=== PATIENT | male | born 1975 | race African-American/Black ===

== ENCOUNTER 2017-10-06 09:34 | Emergency (ER) | payer OTHER ==
[~2017-10-06] VITALS: Ht 193 cm; Wt 113.4 kg
[~2017-10-06 09:34] MED LIST: CEPACOL SORE T1 EAC8 PO; CLEOCIN HCL150 MG PO
[2017-10-06 10:05] LABS: ABSOLUTE NEUTROPHILS 4.8 thou/uL (1.4-8.2); BASOPHILS 0.1 % (0.0-2.0); EOSINOPHILS 0.4 % (0.0-3.0); HEMOGLOBIN 16.4 gm/dL (14.0-18.0); LYMPHOCYTES 5.2 % (24.0-44.0); MCHC 34.1 g/dL (28.0-37.0); PLATELET COUNT 195 thou/uL (150-400); POLYS 89.3 % (36.0-66.0); RBC 5.28 mil/uL (4.50-6.00); RDW 13.6 % (10.5-14.5); WBC 5.4 thou/uL (4.0-11.0)
[2017-10-06 10:14] LABS: CALCIUM 9.5 mg/dL (8.5-10.1); CREATININE 1.1 mg/dL (0.7-1.3); POTASSIUM 4.5 mmol/L (3.5-5.1)
[2017-10-06] MEDS ORDERED: ZOFRAN ODT4 MG PO (10:17)
[2017-10-06 10:19] LABS: ALBUMIN 3.8 g/dL (3.4-5.0); DIRECT BILIRUBIN 0.2 mg/dL (<0.1-0.3); TOTAL BILIRUBIN 0.6 mg/dL (<0.1-1.0); TOTAL PROTEIN 7.8 g/dL (6.4-8.2)
[2017-10-06 10:54] LABS: URINE BILIRUBIN NEGATIVE (Negative); URINE BLOOD NEGATIVE (Negative); URINE CLARITY CLEAR; URINE COLOR YELLOW; URINE GLUCOSE-RANDOM* NEGATIVE (Negative); URINE KETONES NEGATIVE (Negative); URINE LEUKOCYTES NEGATIVE (Negative); URINE NITRITE NEGATIVE (Negative); URINE PROTEIN (DIPSTICK) NEGATIVE (Negative); URINE SPECIFIC GRAVITY 1.015 (1.005-1.035)
[2017-10-06 11:17] VITALS: BP 120/82
== END 2017-10-06 11:18 | disposition home or self-care (01) ==
LOC: ER 09:34
PROVIDERS: Emergency Medicine
DX: R11.2 Nausea with vomiting, unspecified (principal); R19.7 Diarrhea, unspecified; F17.210 Nicotine dependence, cigarettes, uncomplicated; Z88.0 Allergy status to penicillin; Z88.5 Allergy status to narcotic agent

== ENCOUNTER 2018-02-18 12:51 | Emergency (ER) | payer OTHER ==
[~2018-02-18] VITALS: Ht 195.6 cm; Wt 127.0 kg
[~2018-02-18 12:51] MED LIST changes: +ZOFRAN ODT4 MG PO
[2018-02-18 13:20] LABS: URINE BILIRUBIN NEGATIVE (Negative); URINE BLOOD NEGATIVE (Negative); URINE CLARITY CLEAR; URINE COLOR YELLOW; URINE GLUCOSE-RANDOM* NEGATIVE (Negative); URINE KETONES NEGATIVE (Negative); URINE LEUKOCYTES-REFLEX NEGATIVE (Negative); URINE NITRITE-REFLEX NEGATIVE (Negative); URINE PROTEIN (DIPSTICK) TRACE (Negative); URINE UROBILINOGEN 0.2 E.U./dl (0.2-1.0)
[2018-02-18 14:07] LABS: ABSOLUTE NEUTROPHILS 2.2 thou/uL (1.4-8.2); BASOPHILS 0.7 % (0.0-2.0); EOSINOPHILS 1.5 % (0.0-3.0); HEMATOCRIT 43.9 % (42.0-52.0); HEMOGLOBIN 14.9 gm/dL (14.0-18.0); MCH 30.9 pg (26.0-34.0); MONOCYTES 9.2 % (1.0-8.0); PLATELET COUNT 210 thou/uL (150-400); POLYS 55.6 % (36.0-66.0); RBC 4.83 mil/uL (4.50-6.00); RDW 13.6 % (10.5-14.5)
[2018-02-18 14:17] LABS: CALCIUM 9.3 mg/dL (8.5-10.1); CREATININE 1.1 mg/dL (0.7-1.3); POTASSIUM 4.2 mmol/L (3.5-5.1)
[2018-02-18 14:24] LABS: ALBUMIN 3.5 g/dL (3.4-5.0); TOTAL BILIRUBIN 0.3 mg/dL (<0.1-1.0); TOTAL PROTEIN 7.4 g/dL (6.4-8.2)
[2018-02-18] MEDS ORDERED: LEVAQUIN 500 M500 M2 PO (15:09)
[2018-02-18] MEDS ORDERED: DOXYCYCLINE 10100 MG PO (15:18)
[2018-02-18] MEDS ORDERED: TRAMADOL 50 MG50 MG PO (15:21)
[2018-02-18 15:42] VITALS: BP 121/74
== END 2018-02-18 15:44 | disposition home or self-care (01) ==
LOC: ER 12:51
PROVIDERS: Physician Assistant
DX: N45.1 Epididymitis (principal); F17.210 Nicotine dependence, cigarettes, uncomplicated; Z88.5 Allergy status to narcotic agent; Z88.0 Allergy status to penicillin

== ENCOUNTER 2018-03-22 07:59 | Emergency (ER) | payer OTHER ==
[~2018-03-22] VITALS: Ht 195.6 cm; Wt 127.0 kg
[~2018-03-22 07:59] MED LIST changes: +DOXYCYCLINE 10100 MG PO; +LEVAQUIN 500 M500 M2 PO; +TRAMADOL 50 MG50 MG PO
[2018-03-22 08:40] LABS: URINE BILIRUBIN NEGATIVE (Negative); URINE BLOOD NEGATIVE (Negative); URINE CLARITY CLEAR; URINE COLOR YELLOW; URINE GLUCOSE-RANDOM* NEGATIVE (Negative); URINE KETONES NEGATIVE (Negative); URINE LEUKOCYTES-REFLEX NEGATIVE (Negative); URINE NITRITE-REFLEX NEGATIVE (Negative); URINE PROTEIN (DIPSTICK) NEGATIVE (Negative); URINE SPECIFIC GRAVITY 1.025 (1.005-1.035); URINE UROBILINOGEN 0.2 E.U./dl (0.2-1.0)
[2018-03-22] MEDS ORDERED: CIPROFLOXACIN500 M1 PO (08:59)
== END 2018-03-22 09:21 | disposition home or self-care (01) ==
LOC: ER 07:59
PROVIDERS: Emergency Medicine
DX: N45.1 Epididymitis (principal); F17.210 Nicotine dependence, cigarettes, uncomplicated; Z88.5 Allergy status to narcotic agent; Z88.0 Allergy status to penicillin

== ENCOUNTER 2018-06-21 21:49 | Emergency (ER) | payer OTHER ==
[~2018-06-21] VITALS: Ht 195.6 cm; Wt 127.0 kg
[~2018-06-21 21:49] MED LIST changes: +CIPROFLOXACIN500 M1 PO
[2018-06-21 22:07] LABS: URINE BILIRUBIN NEGATIVE (Negative); URINE BLOOD NEGATIVE (Negative); URINE CLARITY CLEAR; URINE GLUCOSE-RANDOM* NEGATIVE (Negative); URINE KETONES NEGATIVE (Negative); URINE LEUKOCYTES-REFLEX NEGATIVE (Negative); URINE NITRITE-REFLEX NEGATIVE (Negative); URINE PROTEIN (DIPSTICK) NEGATIVE (Negative); URINE SPECIFIC GRAVITY 1.025 (1.005-1.035)
[2018-06-21 22:09] LABS: URINE COLOR YELLOW
[2018-06-21 22:12] LABS: ABSOLUTE NEUTROPHILS 1.8 thou/uL (1.4-8.2); BASOPHILS 0.6 % (0.0-2.0); EOSINOPHILS 1.7 % (0.0-3.0); HEMATOCRIT 45.6 % (42.0-52.0); LYMPHOCYTES 40.8 % (24.0-44.0); MCHC 32.9 g/dL (28.0-37.0); MCV 91.2 fL (80.0-100.0); MONOCYTES 10.1 % (1.0-8.0); PLATELET COUNT 216 thou/uL (150-400); POLYS 46.8 % (36.0-66.0); RDW 13.5 % (10.5-14.5); WBC 3.8 thou/uL (4.0-11.0)
[2018-06-21 22:19] LABS: CALCIUM 8.5 mg/dL (8.5-10.1); CREATININE 1.2 mg/dL (0.7-1.3); POTASSIUM 4.4 mmol/L (3.5-5.1)
[2018-06-21 22:25] LABS: ALBUMIN 3.4 g/dL (3.4-5.0); TOTAL BILIRUBIN 0.2 mg/dL (<0.1-1.0); TOTAL PROTEIN 7.2 g/dL (6.4-8.2)
[2018-06-21 22:58] VITALS: BP 125/69
== END 2018-06-21 22:59 | disposition home or self-care (01) ==
LOC: ER 21:49
PROVIDERS: Emergency Medicine
DX: R10.30 Lower abdominal pain, unspecified (principal); F17.210 Nicotine dependence, cigarettes, uncomplicated; Z88.5 Allergy status to narcotic agent; Z88.0 Allergy status to penicillin